=== PATIENT | female | born 1990 | race Caucasian/White ===

== ENCOUNTER 2017-03-17 12:15 | Day surgery (SDC) | payer BC ==
[~2017-03-17] VITALS: Ht 152.4 cm; Wt 42.2 kg
[~2017-03-17 12:15] MED LIST: FERROUS GLUCONATE; GELUSIL; ZANTAC; [UNRECOGNIZED DRUG - OTHER]
[2017-03-17] MEDS ORDERED: PANTOPRAZOLE (13:45)
[2017-03-17 13:47] VITALS: Ht 152.4 cm; Wt 42.2 kg
[2017-03-17] MEDS ORDERED: MIDAZOLAM 1 MG/ML 2 ML INJ ONE (14:01)
[2017-03-17] MEDS ORDERED: PROPOFOL 20 ML ONE (14:01)
[2017-03-17] MEDS ORDERED: LIDOCAINE 2% (SDV) 5 ML INJ ONE (14:01)
[2017-03-17 14:15] VITALS: BP 107/55; PULSE 65; RESP 18
[2017-03-17 15:40] VITALS: BP 105/67; PULSE 73; RESP 20
--- NOTE | 2017-03-18 03:52 | GILP ---
DATE OF PROCEDURE: PROCEDURE: Esophagogastroduodenoscopy with biopsies, enteroscopy with biopsies. BRIEF HISTORY AND INDICATIONS: The patient is being evaluated for abnormal capsule endoscopy, zay ordonez the possibility of Crohn's disease. PREMEDICATION: Monitored anesthesia care by anesthesiologist. SURGEON: Lou David MD INSTRUMENT USED: Olympus pediatric colonoscope TECHNIQUE: After informed consent, with the patient/relatives understanding the procedure, its indic ations, potential risks and complications, including but not limited to: allergic reaction, bleeding , perforation or infection, and after all pertinent questions were answered to the patients satisfac tion, the patient/relatives signed witnessed informed consent. Following this, premedication was administered slowly IV push under careful cardiovascular and respi ratory monitoring with pulse oximetry, automatic blood pressure and telemetry monitor. Once the sedative effect was achieved the patient was place in the left lateral decubitus, the panen doscope was introduced and advanced under visual control. FINDINGS: Careful examination of the upper gastrointestinal tract, both on insertion as well as wit hdrawal of the instrument disclosed the following findings: ESOPHAGUS: The mucosa of the entire esophagus appears within normal limits. There is no evidence of esophagitis, varices, neoplasm or stricture. No hiatal hernia identified. STOMACH: Upon entrance to the stomach air was insufflated. There was erythema and edema of the muc moy of a moderate degree. Biopsies were obtained to rule out H. pylori infection. The instrument was advanced through the pylorus into the duodenum. The duodenum appears essentially within normal limits with exception of possibly some flattening of the villi and is second and third portion of duodenum. The instrument was advanced into what appear s to be the jejunum. Biopsies were obtained of the jejunum, the distal duodenum and proximal duoden um. The instrument was then withdrawn, the patient tolerated the procedure well and was transfer out of the endoscopy suite awake, and in good condition to continue recovery under observation IMPRESSION: 1. Gastritis, rule out Helicobacter pylori infection. 2. Slight flattening of the villi to the base small intestine. Biopsies of jejunum distal an d proximal duodenum obtained, rule out celiac disease, inflammatory bowel disease, Whipple disease a nd other enteropathy. Dictated By: LOU DAVID MS/RACHANA Conf#: [id number] DID#: [id number] CC: LOU DAVID;*EndCC*
== END 2017-03-17 16:33 | disposition home or self-care (01) ==
LOC: GIL 12:15
PROVIDERS: ATTEND Internal Medicine Gastroenterology
DX: K29.50 Unspecified chronic gastritis without bleeding (principal)
CPT/HCPCS: 43239; 84703; 88305; 88312; J2250; Z7610

== ENCOUNTER 2018-08-31 06:44 | Emergency (ER) | END 2018-08-31 08:24 | disposition home or self-care (01) ==